=== PATIENT | female | born 1960 | race Caucasian/White ===

== ENCOUNTER 2018-10-17 12:49 | Inpatient (IN) | payer OTHER ==
[2018-10-17 13:30] VITALS: BMI 25.0
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
[2018-10-17] MEDS ORDERED: MENTHOL/PHENOL 1 EACH UD MM PRN (14:47)
[2018-10-17] MEDS ORDERED: MAGNESIUM HYDROX 2400MG/30ML ORAL SUSPENSION 30 ML CUP PO PRN (14:47)
[2018-10-17] MEDS ORDERED: ACETAMINOPHEN 325 MG TABLET (FP) PO PRN ×2 (14:47)
[2018-10-17] MEDS ORDERED: hydrOXYzine PAMOATE 25 MG CAPSULE (FP) PO PRN (14:47)
[2018-10-17] MEDS ORDERED: IBUPROFEN 400 MG TABLET (FP) PO PRN (14:47)
[2018-10-17] MEDS ORDERED: MAGNESIUM CITRATE 300 ML BOTTLE PO PRN (14:47)
[2018-10-17] MEDS ORDERED: METHOCARBAMOL 500 MG TABLET PO PRN (14:47)
[2018-10-17] MEDS ORDERED: BISMUTH SUBSALICYLATE 524 MG/30 ML UD PO PRN (14:47)
[2018-10-17] MEDS ORDERED: MAG HYDROX/AL HYDROX/SIMETH 30 ML UNIT-DOSE CUP PO PRN (14:47)
[2018-10-17] MEDS ORDERED: MELATONIN 5 MG TABLETS PO PRN (14:47)
[2018-10-17] MEDS: chlordiazePOXIDE HCL 25 MG CAPSULE PO PRN (15:37)
[2018-10-17] MEDS: chlordiazePOXIDE HCL 25 MG CAPSULE PO SCH ×2 (17:53→22:26)
[2018-10-17] MEDS: THIAMINE HCL 100 MG TABLET (FP) PO SCH (22:26)
[2018-10-18] MEDS: chlordiazePOXIDE HCL 25 MG CAPSULE PO SCH ×4 (06:12→22:31)
[2018-10-18] MEDS: chlordiazePOXIDE HCL 25 MG CAPSULE PO PRN ×2 (08:33→15:03)
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
[2018-10-18 09:45] LABS: HEMATOCRIT 36.3 % (32.4-45.2); HEMOGLOBIN 12.4 GM/dL (10.7-15.3); MCH 32.4 pg (25.7-33.7); MCHC 34.1 g/dl (32.0-36.0); MEAN PLT VOLUME 7.1 fl (7.5-11.1); PLATELET COUNT 292 K/MM3 (134-434); RBC 3.82 M/mm3 (3.60-5.2); RDW 17.7 % (11.6-15.6); WHITE BLOOD COUNT 4.3 K/mm3 (4.0-10.0)
[2018-10-18 09:53] LABS: ALBUMIN 2.8 g/dl (3.4-5.0); ALK PHOS 106 U/L (45-117); ANION GAP 9 MMOL/L (8-16); BILIRUBIN,TOTAL 1.2 mg/dL (0.2-1); BLOOD UREA NITROGEN 5 mg/dL (7-18); CHLORIDE 104 mmol/L (98-107); CO2 25 mmol/L (21-32); CREATININE 0.6 mg/dL (0.55-1.3); GLUCOSE,RANDOM 96 mg/dL (74-106); POTASSIUM 3.4 mmol/L (3.5-5.1); SGOT/AST 117 U/L (15-37); SGPT/ALT 99 U/L (13-61); SODIUM 138 mmol/L (136-145); TOT PROT 6.2 g/dl (6.4-8.2)
[2018-10-18] MEDS: PRENATAL VITAMINS W/ FOLIC ACID TABLET (FP) PO SCH (10:25)
[2018-10-18] MEDS: SULFAMETHOXAZOLE/TRIMETHOPRIM 800MG/160MG D.S. TABLET PO SCH ×2 (13:00→22:30)
[2018-10-18] MEDS: SILVER SULFADIAZINE 1% TOP CREAM 50 GM JAR TP SCH ×2 (13:00→22:31)
--- NOTE | 2018-10-18 15:40 | PN ---
[facility] CIWA - CIWA Score Nausea/Vomitin-No Nausea/No Vomiting Muscle Tremors: 5 Anxiety: 2 Agitation: 0-Normal Activity Paroxysmal Sweats: No Perspiration Orientation: 0-Oriented Tacttile Disturbances: 2-Mild Itch/Numbness/Burn Auditory Disturbances: 1-Very Mild Visual Disturbances: 3-Moderate Sensitivity Headache: 0-None Present CIWA-Ar Total Score: 13 S Progress Note (SOAP) Subjective: Tremors, Body Aches, Poor Appetite, Fatigue. Objective: PATIENT A & O X 3. IN NO ACUTE DISTRESS. 10/18/18 15:36 Vital Signs Temperature 99.1 F 10/18/18 13:51 Pulse Rate 97 H 10/18/18 13:51 Respiratory Rate 16 10/18/18 13:51 Blood Pressure 138/85 10/18/18 13:51 O2 Sat by Pulse Oximetry (%) Laboratory Tests 10/18/18 10/18/18 10/18/18 07:40 07:40 07:40 WBC 4.3 RBC 3.82 Hgb 12.4 Hct 36.3 MCV 95.0 MCH 32.4 MCHC 34.1 RDW 17.7 H Plt Count 292 MPV 7.1 L Sodium 138 Potassium 3.4 L Chloride 104 Carbon Dioxide 25 Anion Gap 9 BUN 5 L Creatinine 0.6 Creat Clearance w eGFR 101.97 Random Glucose 96 Calcium 8.0 L Total Bilirubin 1.2 H AST 117 H ALT 99 H Alkaline Phosphatase 106 Total Protein 6.2 L Albumin 2.8 L RPR Titer Nonreactive LABS NOTED. ULCER NOTED ON MCP JOINT OF 1ST METATARSAL BONE. PATIENT REPORTS THAT ULCER HAS BEEN PRESENT FOR SEVERAL WEEKS. PATIENT STATES THAT SHE BELIEVES ULCER TO BE DUE TO SHOES THAT SHE WEARS. PATIENT DENIES KNOWN HISTORY OF DM OR OF CARDIOVASCULAR DISEASE. WOUND MARGINS WELL-APPROXIMATED. NO ERYTHEMA, SWELLING NOTED IN TISSUES SURROUNDING WOUND. NO UNUSUAL DISCHARGE NOTED FROM ULCER. 10/18/18 15:43 Assessment: 10/18/18 15:36 WITHDRAWAL SYMPTOMS. HYPOKALEMIA. HYPOCALCEMIA. ELEVATED LIVER ENZYMES. RIGHT FOOT ULCER. 10/18/18 15:40 Plan: CONTINUE DETOX. K-DUR, 20 MEQ PO BID FOR LOW K LEVEL. OSCAL, 500 MG PO BID FOR LOW CA LEVEL. HFP TOMORROW AM FOR ELEVATED LIVER ENZYMES NOTED ON ADMISSION. CONSIDER CHANGING FROM LIBRIUM DETOX PROTOCOL TO ATIVAN DETOX PROTOCOL BASED ON RESULT OF LIVER ENZYMES NOTED ON HFP TOMORROW. BACTRIM DS, 1 TABLET PO BID FOR RIGHT FOOT ULCER. CLEAN ULCER ON RIGHT FOOT WITH NS, THEN APPLY SILVADENE CREAM, AND COVER WITH GAUZE BID. INCREASE DAILY PO FLUID INTAKE.
[2018-10-18] MEDS: POTASSIUM CHLORIDE TABS 20 MEQ TABLET.ER (FP) PO SCH (18:12)
[2018-10-18] MEDS: LIDOCAINE 5% TOPICAL PATCH TP SCH (18:23)
[2018-10-18 20:33] LABS: URINE APPEARANCE CLEAR; URINE BILIRUBIN NEGATIVE (<2.0 mg/dL); URINE COLOR LTYELLOW; URINE GLUCOSE (UA) NEGATIVE (NEGATIVE); URINE KETONE NEGATIVE (NEGATIVE); URINE LEUK ESTERASE 3+ (NEGATIVE); URINE NITRITE NEGATIVE (NEGATIVE); URINE PROTEIN NEGATIVE (NEGATIVE); URINE UROBILINOGEN NEGATIVE mg/dL (0.2-1.0)
[2018-10-18 20:52] LABS: EPI CELLS RARE /HPF (FEW)
[2018-10-18] MEDS: CALCIUM 500MG/VIT-D 200 UNITS COMBO TABLET (FP) PO SCH (22:30)
[2018-10-18] MEDS: THIAMINE HCL 100 MG TABLET (FP) PO SCH (22:31)
[2018-10-18] MEDS: LIDOCAINE PATCH REMOVAL MC SCH (22:32)
[2018-10-19] MEDS: chlordiazePOXIDE HCL 25 MG CAPSULE PO SCH ×2 (06:28→11:00)
[2018-10-19] MEDS: LIDOCAINE 5% TOPICAL PATCH TP SCH (10:03)
[2018-10-19 10:44] LABS: ALBUMIN 2.9 g/dl (3.4-5.0); BILIRUBIN,DIRECT 0.3 mg/dL (0.0-0.2); BILIRUBIN,TOTAL 0.8 mg/dL (0.2-1); TOT PROT 6.2 g/dl (6.4-8.2)
[2018-10-19] MEDS: PRENATAL VITAMINS W/ FOLIC ACID TABLET (FP) PO SCH (10:59)
[2018-10-19] MEDS: SULFAMETHOXAZOLE/TRIMETHOPRIM 800MG/160MG D.S. TABLET PO SCH ×2 (11:00→23:10)
[2018-10-19] MEDS: SILVER SULFADIAZINE 1% TOP CREAM 50 GM JAR TP SCH ×2 (11:00→23:10)
[2018-10-19] MEDS: CALCIUM 500MG/VIT-D 200 UNITS COMBO TABLET (FP) PO SCH ×2 (11:00→23:10)
[2018-10-19] MEDS: POTASSIUM CHLORIDE TABS 20 MEQ TABLET.ER (FP) PO SCH ×2 (11:00→17:43)
--- NOTE | 2018-10-19 13:09 | EKG ---
Test Reason : Blood Pressure : / mmHG Vent. Rate : 085 BPM Atrial Rate : 085 BPM P-R Int : 126 ms QRS Dur : 088 ms QT Int : 400 ms P-R-T Axes : 044 003 044 degrees QTc Int : 476 ms NORMAL SINUS RHYTHM NORMAL ECG NO PREVIOUS ECGS AVAILABLE Confirmed by MD JANETTE, HERBIE ([id number]) on 10/19/2018 1:08:42 PM Referred By: Confirmed By:HERBIE SAVAGE MD
--- NOTE | 2018-10-19 16:19 | PN ---
[facility] CIWA - CIWA Score Nausea/Vomitin-No Nausea/No Vomiting Muscle Tremors: 4-Moderate,w/Arms Extend Anxiety: 2 Agitation: 0-Normal Activity Paroxysmal Sweats: 3 Orientation: 0-Oriented Tacttile Disturbances: 2-Mild Itch/Numbness/Burn Auditory Disturbances: 0-None Visual Disturbances: 2-Mild Sensitivity Headache: 0-None Present CIWA-Ar Total Score: 13 S Progress Note (SOAP) Subjective: Tremors, Body Aches, Poor Appetite, Fatigue. Objective: PATIENT A & O X 3. IN NO ACUTE DISTRESS. 10/19/18 16:16 Vital Signs Temperature 97.9 F 10/19/18 14:00 Pulse Rate 121 H 10/19/18 14:00 Respiratory Rate 18 10/19/18 14:00 Blood Pressure 139/91 10/19/18 14:00 O2 Sat by Pulse Oximetry (%) Laboratory Tests 10/18/18 10/18/18 10/18/18 07:40 07:40 07:40 WBC 4.3 RBC 3.82 Hgb 12.4 Hct 36.3 MCV 95.0 MCH 32.4 MCHC 34.1 RDW 17.7 H Plt Count 292 MPV 7.1 L Sodium 138 Potassium 3.4 L Chloride 104 Carbon Dioxide 25 Anion Gap 9 BUN 5 L Creatinine 0.6 Creat Clearance w eGFR 101.97 Random Glucose 96 Calcium 8.0 L Total Bilirubin 1.2 H Direct Bilirubin AST 117 H ALT 99 H Alkaline Phosphatase 106 Total Protein 6.2 L Albumin 2.8 L Urine Color Urine Appearance Urine pH Ur Specific [place] Urine Protein Urine Glucose (UA) Urine Ketones Urine Blood Urine Nitrite Urine Bilirubin Urine Urobilinogen Ur Leukocyte Esterase Urine WBC (Auto) Urine RBC (Auto) Ur Epithelial Cells RPR Titer Nonreactive 10/18/18 10/19/18 19:15 07:50 WBC RBC Hgb Hct MCV MCH MCHC RDW Plt Count MPV Sodium Potassium Chloride Carbon Dioxide Anion Gap BUN Creatinine Creat Clearance w eGFR Random Glucose Calcium Total Bilirubin 0.8 Direct Bilirubin 0.3 H AST 76 H ALT 78 H Alkaline Phosphatase 105 Total Protein 6.2 L Albumin 2.9 L Urine Color Ltyellow Urine Appearance Clear Urine pH 8.0 Ur Specific [place] 1.009 L Urine Protein Negative Urine Glucose (UA) Negative Urine Ketones Negative Urine Blood Negative Urine Nitrite Negative Urine Bilirubin Negative Urine Urobilinogen Negative Ur Leukocyte Esterase 3+ H Urine WBC (Auto) 132 Urine RBC (Auto) 1 Ur Epithelial Cells Rare RPR Titer LABS NOTED. RESULTS OF UA NOTED. PATIENT CURRENTLY RECEIVING BACTRIM DS FOR ULCER ON RIGHT FOOT. RESULTS OF HFP NOTED. ULCER ON RIGHT FOOT APPEARS TO BE HEALING WELL - CONTINUE WOUND CARE PREVIOUSLY DIRECTED. 10/19/18 16:16 Assessment: 10/19/18 16:16 WITHDRAWAL SYMPTOMS. Plan: CONTINUE DETOX. INCREASE DAILY PO FLUID INTAKE.
[2018-10-19] MEDS ORDERED: chlordiazePOXIDE HCL 10 MG CAPSULE PO PRN (17:00)
[2018-10-19] MEDS: chlordiazePOXIDE HCL 10 MG CAPSULE PO SCH ×2 (17:43→23:10)
[2018-10-19] MEDS: THIAMINE HCL 100 MG TABLET (FP) PO SCH (23:10)
[2018-10-19] MEDS: LIDOCAINE PATCH REMOVAL MC SCH (23:24)
[2018-10-20] MEDS: chlordiazePOXIDE HCL 10 MG CAPSULE PO SCH ×3 (05:45→17:43)
[2018-10-20] MEDS: SULFAMETHOXAZOLE/TRIMETHOPRIM 800MG/160MG D.S. TABLET PO SCH ×2 (10:33→22:15)
[2018-10-20] MEDS: PRENATAL VITAMINS W/ FOLIC ACID TABLET (FP) PO SCH (10:33)
[2018-10-20] MEDS: CALCIUM 500MG/VIT-D 200 UNITS COMBO TABLET (FP) PO SCH ×2 (10:34→22:14)
[2018-10-20] MEDS: SILVER SULFADIAZINE 1% TOP CREAM 50 GM JAR TP SCH ×2 (10:34→22:14)
[2018-10-20] MEDS: LIDOCAINE 5% TOPICAL PATCH TP SCH (10:34)
[2018-10-20] MEDS: POTASSIUM CHLORIDE TABS 20 MEQ TABLET.ER (FP) PO SCH ×2 (10:45→17:43)
--- NOTE | 2018-10-20 11:58 | PN ---
S CIWA - CIWA Score Nausea/Vomitin-No Nausea/No Vomiting Muscle Tremors: 2 Anxiety: 2 Agitation: 1-Slight > Activity Paroxysmal Sweats: 1-Minimal Palms Moist Orientation: 2-Disoriented Date<2 days Tacttile Disturbances: 0-None Auditory Disturbances: 0-None Visual Disturbances: 0-None Headache: 0-None Present CIWA-Ar Total Score: 8 BHS Progress Note (SOAP) Subjective: feeling better less sweating mild tremor right lateral great toe base 1 cm round skin abrasion from "shoes" too tight scan dry blood noted encourage no pressure to right great toe continue dressing as per instructed Objective: 10/20/18 11:59 Vital Signs Temperature 97.8 F 10/20/18 09:59 Pulse Rate 75 10/20/18 09:59 Respiratory Rate 18 10/20/18 09:59 Blood Pressure 113/67 10/20/18 09:59 O2 Sat by Pulse Oximetry (%) Laboratory Last Values WBC 4.3 K/mm3 (4.0-10.0) 10/18/18 07:40 RBC 3.82 M/mm3 (3.60-5.2) 10/18/18 07:40 Hgb 12.4 GM/dL (10.7-15.3) 10/18/18 07:40 Hct 36.3 % (32.4-45.2) 10/18/18 07:40 MCV 95.0 fl (80-96) 10/18/18 07:40 MCH 32.4 pg (25.7-33.7) 10/18/18 07:40 MCHC 34.1 g/dl (32.0-36.0) 10/18/18 07:40 RDW 17.7 % (11.6-15.6) H 10/18/18 07:40 Plt Count 292 K/MM3 (134-434) 10/18/18 07:40 MPV 7.1 fl (7.5-11.1) L 10/18/18 07:40 Sodium 138 mmol/L (136-145) 10/18/18 07:40 Potassium 3.8 mmol/L (3.5-5.1) 10/20/18 07:35 Chloride 104 mmol/L (98-107) 10/18/18 07:40 Carbon Dioxide 25 mmol/L (21-32) 10/18/18 07:40 Anion Gap 9 MMOL/L (8-16) 10/18/18 07:40 BUN 5 mg/dL (7-18) L 10/18/18 07:40 Creatinine 0.6 mg/dL (0.55-1.3) 10/18/18 07:40 Creat Clearance w eGFR 101.97 (>60) 10/18/18 07:40 Random Glucose 96 mg/dL (74-106) 10/18/18 07:40 Calcium 8.0 mg/dL (8.5-10.1) L 10/18/18 07:40 Total Bilirubin 0.8 mg/dL (0.2-1) 10/19/18 07:50 Direct Bilirubin 0.3 mg/dL (0.0-0.2) H 10/19/18 07:50 AST 76 U/L (15-37) H 10/19/18 07:50 ALT 78 U/L (13-61) H 10/19/18 07:50 Alkaline Phosphatase 105 U/L (45-117) 10/19/18 07:50 Total Protein 6.2 g/dl (6.4-8.2) L 10/19/18 07:50 Albumin 2.9 g/dl (3.4-5.0) L 10/19/18 07:50 Urine Color Ltyellow 10/18/18 19:15 Urine Appearance Clear 10/18/18 19:15 Urine pH 8.0 (5.0-8.0) 10/18/18 19:15 Ur Specific [place] 1.009 (1.010-1.035) L 10/18/18 19:15 Urine Protein Negative (NEGATIVE) 10/18/18 19:15 Urine Glucose (UA) Negative (NEGATIVE) 10/18/18 19:15 Urine Ketones Negative (NEGATIVE) 10/18/18 19:15 Urine Blood Negative (NEGATIVE) 10/18/18 19:15 Urine Nitrite Negative (NEGATIVE) 10/18/18 19:15 Urine Bilirubin Negative (<2.0 mg/dL) 10/18/18 19:15 Urine Urobilinogen Negative mg/dL (0.2-1.0) 10/18/18 19:15 Ur Leukocyte Esterase 3+ (NEGATIVE) H 10/18/18 19:15 Urine WBC (Auto) 132 /hpf (3-5) 10/18/18 19:15 Urine RBC (Auto) 1 /hpf (0-3) 10/18/18 19:15 Ur Epithelial Cells Rare /HPF (FEW) 10/18/18 19:15 RPR Titer Nonreactive (NONREACTIVE) 10/18/18 07:40 10/20/18 12:02 uti continue bactrim ds lab noted 10/20/18 12:05 Assessment: 10/20/18 12:06 withdrawal sx skin abrasion right great toe dressing change uti Plan: continue detox continue bactrim ds increase oral fluid dressing change to right great toe
[2018-10-20] MEDS: MINERAL OIL/PETROLAT/WATER TOPICAL CREAM 113 GM JAR TP SCH ×2 (13:40→22:14)
[2018-10-20] MEDS: THIAMINE HCL 100 MG TABLET (FP) PO SCH (22:14)
[2018-10-20] MEDS: LIDOCAINE PATCH REMOVAL MC SCH (22:15)
[2018-10-21] MEDS: chlordiazePOXIDE HCL 10 MG CAPSULE PO SCH (06:05)
[2018-10-21 09:13] VITALS: BP 115/62; PULSE 80; TEMP 96.9
[2018-10-21] MEDS: PRENATAL VITAMINS W/ FOLIC ACID TABLET (FP) PO SCH (10:49)
[2018-10-21] MEDS: CALCIUM 500MG/VIT-D 200 UNITS COMBO TABLET (FP) PO SCH (10:50)
[2018-10-21] MEDS: SILVER SULFADIAZINE 1% TOP CREAM 50 GM JAR TP SCH (10:57)
[2018-10-21] MEDS: LIDOCAINE 5% TOPICAL PATCH TP SCH (10:58)
[2018-10-21] MEDS: POTASSIUM CHLORIDE TABS 20 MEQ TABLET.ER (FP) PO SCH (10:58)
[2018-10-21] MEDS: MINERAL OIL/PETROLAT/WATER TOPICAL CREAM 113 GM JAR TP SCH (10:58)
[2018-10-21] MEDS: SULFAMETHOXAZOLE/TRIMETHOPRIM 800MG/160MG D.S. TABLET PO SCH (10:58)
--- NOTE | 2018-10-21 14:49 | DS ---
[facility] Detox Discharge Summary Admission Date: 10/17/18 Discharge Date: 10/21/18 - History Present History: Alcohol Dependence Additional Comments: 58 years old female admitted on 10/17/18 for alcohol withdrawal stabilization completed detox regimen aftercare [facility] - Physical Exam Results Vital Signs: Vital Signs Temperature 96.9 F L 10/21/18 09:12 Pulse Rate 80 10/21/18 09:12 Respiratory Rate 18 10/21/18 09:12 Blood Pressure 115/62 10/21/18 09:12 O2 Sat by Pulse Oximetry (%) Pertinent Admission Physical Exam Findings: alcohol withdrawal sx Laboratory Last Values WBC 4.3 K/mm3 (4.0-10.0) 10/18/18 07:40 RBC 3.82 M/mm3 (3.60-5.2) 10/18/18 07:40 Hgb 12.4 GM/dL (10.7-15.3) 10/18/18 07:40 Hct 36.3 % (32.4-45.2) 10/18/18 07:40 MCV 95.0 fl (80-96) 10/18/18 07:40 MCH 32.4 pg (25.7-33.7) 10/18/18 07:40 MCHC 34.1 g/dl (32.0-36.0) 10/18/18 07:40 RDW 17.7 % (11.6-15.6) H 10/18/18 07:40 Plt Count 292 K/MM3 (134-434) 10/18/18 07:40 MPV 7.1 fl (7.5-11.1) L 10/18/18 07:40 Sodium 138 mmol/L (136-145) 10/18/18 07:40 Potassium 3.8 mmol/L (3.5-5.1) 10/20/18 07:35 Chloride 104 mmol/L (98-107) 10/18/18 07:40 Carbon Dioxide 25 mmol/L (21-32) 10/18/18 07:40 Anion Gap 9 MMOL/L (8-16) 10/18/18 07:40 BUN 5 mg/dL (7-18) L 10/18/18 07:40 Creatinine 0.6 mg/dL (0.55-1.3) 10/18/18 07:40 Creat Clearance w eGFR 101.97 (>60) 10/18/18 07:40 Random Glucose 96 mg/dL (74-106) 10/18/18 07:40 Calcium 8.0 mg/dL (8.5-10.1) L 10/18/18 07:40 Total Bilirubin 0.8 mg/dL (0.2-1) 10/19/18 07:50 Direct Bilirubin 0.3 mg/dL (0.0-0.2) H 10/19/18 07:50 AST 76 U/L (15-37) H 10/19/18 07:50 ALT 78 U/L (13-61) H 10/19/18 07:50 Alkaline Phosphatase 105 U/L (45-117) 10/19/18 07:50 Total Protein 6.2 g/dl (6.4-8.2) L 10/19/18 07:50 Albumin 2.9 g/dl (3.4-5.0) L 10/19/18 07:50 Urine Color Ltyellow 10/18/18 19:15 Urine Appearance Clear 10/18/18 19:15 Urine pH 8.0 (5.0-8.0) 10/18/18 19:15 Ur Specific [place] 1.009 (1.010-1.035) L 10/18/18 19:15 Urine Protein Negative (NEGATIVE) 10/18/18 19:15 Urine Glucose (UA) Negative (NEGATIVE) 10/18/18 19:15 Urine Ketones Negative (NEGATIVE) 10/18/18 19:15 Urine Blood Negative (NEGATIVE) 10/18/18 19:15 Urine Nitrite Negative (NEGATIVE) 10/18/18 19:15 Urine Bilirubin Negative (<2.0 mg/dL) 10/18/18 19:15 Urine Urobilinogen Negative mg/dL (0.2-1.0) 10/18/18 19:15 Ur Leukocyte Esterase 3+ (NEGATIVE) H 10/18/18 19:15 Urine WBC (Auto) 132 /hpf (3-5) 10/18/18 19:15 Urine RBC (Auto) 1 /hpf (0-3) 10/18/18 19:15 Ur Epithelial Cells Rare /HPF (FEW) 10/18/18 19:15 RPR Titer Nonreactive (NONREACTIVE) 10/18/18 07:40 lab noted - Treatment Hospital Course: Detox Protocol Followed, Detoxed Safely, Responded well, Discharged Condition Good, Rehab Referral Accepted Patient has Accepted a Rehab Referral to: [email or web address] - Medication Discharge Medications: Ambulatory Orders NK [No Known Home Medication] 10/17/18 - Diagnosis (1) Alcohol abuse with intoxication, uncomplicated Status: Acute (2) Hypocalcemia Status: Chronic (3) Right foot ulcer Status: Chronic Qualifiers: Non-pressure ulcer stage: limited to breakdown of skin Qualified Code(s): L97.511 - Non-pressure chronic ulcer of other part of right foot limited to breakdown of skin (4) Use of cane as ambulatory aid Status: Chronic - AMA Did Patient Leave Against Medical Advice: No
== END 2018-10-21 13:30 | disposition home or self-care (01) | DRG 775 ==
LOC: YASAS 12:49 → Y6N 14:32 → Y3N 15:23
PROVIDERS: ADMIT Surgery; ATTEND Surgery
PROC: HZ2ZZZZ Detoxification Services for Substance Abuse Treatment (ICD-10-PCS; principal; 2018-10-17)
DX: F10.230 Alcohol dependence with withdrawal, uncomplicated (principal); F10.24 Alcohol dependence with alcohol-induced mood disorder; F32.9 Major depressive disorder, single episode, unspecified; E83.51 Hypocalcemia; E87.6 Hypokalemia; R74.8 Abnormal levels of other serum enzymes; I34.1 Nonrheumatic mitral (valve) prolapse; H35.363 Drusen (degenerative) of macula, bilateral; L97.511 Non-pressure chronic ulcer of other part of right foot limited to breakdown of skin; Z99.89 Dependence on other enabling machines and devices; Z91.5 Personal history of self-harm; Z59.0 Homelessness
CPT/HCPCS: 36415; 80053; 80076; 81003; 81015; 84132; 85027; 86593; 93005; 93010